=== PATIENT | female | born 1990 | race Caucasian/White ===

== ENCOUNTER → 2016-12-12 | Outpatient (CLI) | payer BC ==
[~2016-12-12] MED LIST: BCPILLS PO
--- NOTE | 2016-12-12 16:41 | ECHOCARDIOGRAM REPORT ---
*NOTICE TO RECEIVING LIBERTARIAN AGENCY This information is strictly Confidential and protected under [place] law. [place] law prohibits you from making any further disclosure of this information unless further disclosure is expressly permitted by the written consent of the person to whom it pertains or is authorized by law. A general authorization for the release of medical or other information is not sufficient for this purpose. Hospital accepts no responsibility if the information is made available to any other person, INCLUDING THE PATIENT. Interpretation Summary * Name: JC RIOS Study Date: 12/12/2016 03:52 PM BP: 118/60 mmHg * Patient Location: [facility] * : 1990 (M/d/yyyy) Gender: Female Height: 66 in * Age: 26 yrs Ethnicity: [place] Weight: 155 lb * Ordering Physician: Hugh Cameron * Referring Physician: Hugh Cameron * Performed By: Sharon Titus RDCS * * Reason For Study: TRICUSPID VALVE REGURGITATION * BSA: 1.8 m2 * History: TRICUSPID VALVE REGURGITATION * Normal biventricular systolic function. * Trace pulmonic regurgitation. * Trace mitral and tricuspid regurgitation. * Normal chamber dimensions. Procedure Details * A complete two-dimensional transthoracic echocardiogram was performed (2D, M-mode, Doppler and color flow Doppler). Left Ventricle * The left ventricle is normal in size. * There is normal left ventricular wall thickness. * Ejection Fraction = 65-70%. * Left ventricular systolic function is normal. * The left ventricular wall motion is normal. Right Ventricle * The right ventricle is normal in size and function. Atria * The left atrial size is normal. * Right atrial size is normal. * No ASD detected; PFO is not assessed. Mitral Valve * The mitral valve is normal. * There is no mitral valve stenosis. * There is trace mitral regurgitation. Tricuspid Valve * The tricuspid valve is normal. * There is no tricuspid stenosis. * There is trace tricuspid regurgitation. * Right ventricular systolic pressure is normal. Aortic Valve * The aortic valve is trileaflet. * The aortic valve opens well. * Aortic stenosis is absent. * No aortic regurgitation is present. Pulmonic Valve * The pulmonic valve is not well seen, but is grossly normal. * There is no pulmonic valvular stenosis. * Trace pulmonic valvular regurgitation. Great Vessels * The aortic root is normal size. Pericardium/Pleural * There is no pericardial effusion. Great Vessels * Normal inferior vena cava diameter and respiratory variation suggests normal central venous pressure. MMode 2D Measurements and Calculations IVSd 0.74 cm IVSs 1.4 cm LVIDd 4.6 cm LVIDs 2.6 cm LVPWd 0.77 cm LVPWs 1.0 cm IVS/LVPW 0.96 FS 43.4 % EDV(Teich) 95.1 ml ESV(Teich) 24.1 ml EF(Teich) 74.7 % EDV(cubed) 94.5 ml ESV(cubed) 17.1 ml EF(cubed) 81.9 % % IVS thick 86.5 % % LVPW thick 31.6 % LV mass(C)d 107.2 grams LV mass(C)dI 59.7 grams/m\S\2 LV mass(C)s 88.1 grams LV mass(C)sI 49.1 grams/m\S\2 CO(Teich) 4.3 l/min CI(Teich) 2.4 l/min/m\S\2 SV(Teich) 71.0 ml SI(Teich) 39.6 ml/m\S\2 CO(cubed) 4.6 l/min CI(cubed) 2.6 l/min/m\S\2 SV(cubed) 77.3 ml SI(cubed) 43.1 ml/m\S\2 Ao root diam 2.8 cm Ao root area 6.2 cm\S\2 LA dimension 3.3 cm LA/Ao 1.2 LVAd ap4 33.8 cm\S\2 LVLd ap4 8.3 cm EDV(MOD-sp4) 115.0 ml LVAs ap4 15.8 cm\S\2 LVLs ap4 6.0 cm ESV(MOD-sp4) 36.0 ml EF(MOD-sp4) 68.7 % LVAd ap2 30.7 cm\S\2 LVLd ap2 8.3 cm EDV(MOD-sp2) 96.3 ml LVAs ap2 16.0 cm\S\2 LVLs ap2 5.9 cm ESV(MOD-sp2) 35.7 ml EF(MOD-sp2) 62.9 % CO(MOD-sp4) 4.7 l/min CI(MOD-sp4) 2.6 l/min/m\S\2 SV(MOD-sp4) 79.0 ml SI(MOD-sp4) 44.0 ml/m\S\2 CO(MOD-sp2) 3.6 l/min CI(MOD-sp2) 2.0 l/min/m\S\2 SV(MOD-sp2) 60.6 ml SI(MOD-sp2) 33.8 ml/m\S\2 Doppler Measurements and Calculations MV E max rebekah 81.0 cm/sec MV dec time 0.24 sec Ao V2 max 144.2 cm/sec Ao max PG 8.3 mmHg Ao max PG (full) 4.0 mmHg LV V1 max PG 4.3 mmHg LV V1 max 103.9 cm/sec TR max rebekah 228.9 cm/sec
== END | disposition home or self-care (01) ==
LOC: C.CPL 12:45
PROVIDERS: ATTEND Family Medicine
DX: I08.1 Rheumatic disorders of both mitral and tricuspid valves (principal)

== ENCOUNTER → 2016-12-12 | Outpatient (CLI) | payer BC ==
--- NOTE | 2016-12-12 11:13 | DIAGNOSTIC IMAGING REPORT ---
CHEST 2 VIEWS ROUTINE CLINICAL HISTORY: CHEST PAIN PT TO LAB FIRST dyspnea COMPARISON STUDY: No previous studies for comparison. FINDINGS: The bones soft tissues and hemidiaphragms are normal. The cardiomediastinal silhouette is normal. The lungs are clear. The pulmonary vasculature is normal. IMPRESSION: Negative chest. Electronically signed by: Uri Eric M.D. 12/12/2016 11:11 AM Dictated Date/Time: 12/12/2016 11:11 AM
[2016-12-12 14:53] LABS: BASO % 0.3 %; BASO ABS # 0.02 K/uL (0-0.2); COMPLETE YES; EOS % 2.1 %; HEMATOCRIT 39.6 % (37-47); IG% 0.3 %; LYMPH % 38.1 %; LYMPH ABS # 2.52 K/uL (1.2-3.4); MEAN CELL VOLUME 84.6 fL (80-100); MEAN CORPUSCULAR HEMOGLOBIN 29.9 pg (25-34); MEAN CORPUSCULAR HGB CONC 35.4 g/dl (32-36); MEAN PLATELET VOLUME 9.6 fL (7.4-10.4); MONO % 9.1 %; NEUT % 50.1 %; PLATELET COUNT 294 K/uL (130-400); RED BLOOD COUNT 4.68 M/uL (4.2-5.4); WHITE BLOOD COUNT 6.62 K/uL (4.8-10.8)
[2016-12-12 15:03] LABS: ESTIMATED AVERAGE GLUCOSE 97 mg/dl; HA1C FLAG Normal (Normal)
[2016-12-12 15:08] LABS: ALT/SGPT 23 U/L (12-78); BLOOD UREA NITROGEN 7 mg/dl (7-18); BUN/CREATININE RATIO 10.7 (10-20); CALCIUM 9.1 mg/dl (8.5-10.1); CARBON DIOXIDE 24 mmol/L (21-32); CHLORIDE 107 mmol/L (98-107); CHOLESTEROL 185 mg/dl (0-200); CREATININE 0.68 mg/dl (0.60-1.20); GLUCOSE 87 mg/dl (70-99); PHOSPHORUS 3.3 mg/dl (2.5-4.9); POTASSIUM 4.1 mmol/L (3.5-5.1); SODIUM 139 mmol/L (136-145); TRIGLYCERIDES 47 mg/dl (0-150); URIC ACID 3.8 mg/dl (2.6-7.2); VERY LOW DENSITY LIPOPROT CALC 9 mg/dl
[2016-12-12 15:17] LABS: ALB/GLOB RATIO 1.2 (0.9-2); ALKALINE PHOSPHATASE 54 U/L (45-117); AST/SGOT 16 U/L (15-37); CHOLESTEROL/HDL RATIO 2.8; FERRITIN 71.7 ng/ml (8.0-388.0); HDL CHOLESTEROL 67 mg/dl; LDL CHOLESTEROL CALCULATED 109 mg/dl; TOTAL IRON BINDING CAPACITY 347 mcg/dl (250-450)
[2016-12-16 09:12] LABS: C-REACTIVE PROT HIGHSEN 0.8 MG/L; GLIADIN DEAMIDATED IgA AB 4 UNITS (<20); GLIADIN DEAMIDATED IgG AB 7 UNITS (<20)
[2016-12-17 06:08] LABS: 18KDIGG BAND NONREACTIVE (NONREACTIVE); 23KDIGG BAND NONREACTIVE (NONREACTIVE); 23KDIGM BAND NONREACTIVE (NONREACTIVE); 28KDIGG BAND NONREACTIVE (NONREACTIVE); 30KDIGG BAND NONREACTIVE (NONREACTIVE); 39KDIGG BAND NONREACTIVE (NONREACTIVE); 39KDIGM BAND NONREACTIVE (NONREACTIVE); 41KDIGG BAND REACTIVE (NONREACTIVE); 41KDIGM BAND NONREACTIVE (NONREACTIVE); 45KDIGG BAND NONREACTIVE (NONREACTIVE); 58KDIGG BAND REACTIVE (NONREACTIVE); 66KDIGG BAND REACTIVE (NONREACTIVE); 93KDIGG BAND NONREACTIVE (NONREACTIVE)
== END | disposition home or self-care (01) ==
LOC: C.LABBC 10:32
PROVIDERS: ATTEND Family Medicine
DX: R07.9 Chest pain, unspecified (principal); R73.09 Other abnormal glucose; E55.9 Vitamin D deficiency, unspecified; D51.9 Vitamin B12 deficiency anemia, unspecified; R53.83 Other fatigue; M25.50 Pain in unspecified joint